=== PATIENT | male | born 1965 | race Two or more races ===

== ENCOUNTER 2018-08-19 20:05 | Emergency (ER) | payer OTHER, MEDICAID ==
[~2018-08-19] VITALS: Ht 167.6 cm; Wt 72.6 kg
[2018-08-19 20:16] VITALS: BP 175/106
== END 2018-08-19 21:31 ==
LOC: ER 20:07
DX: S00.12XA Contusion of left eyelid and periocular area, initial encounter (principal); H11.32 Conjunctival hemorrhage, left eye; F17.200 Nicotine dependence, unspecified, uncomplicated; W22.8XXA Striking against or struck by other objects, initial encounter; Y93.89 Activity, other specified; Y92.89 Other specified places as the place of occurrence of the external cause; Y99.8 Other external cause status